=== PATIENT | male | born 1995 | race African-American/Black ===

== ENCOUNTER 2022-12-03 22:15 | Emergency (ER) | payer MEDICAID ==
[~2022-12-03] VITALS: Ht 177.8 cm; Wt 90.0 kg
[2022-12-03 23:04] LABS: BASOPHILS % 0.5 % (0.0-2.0); CHLORIDE 106 mEq/L (98-107); EOSINOPHILS % 2.1 % (0.0-5.0); HEMATOCRIT. 49.2 % (42.0-52.0); HEMOGLOBIN. 16.9 g/dL (14.0-18.0); LYMPHOCYTES % 35.6 % (20.0-50.0); MEAN CORPUSCULAR HEMOGLOBIN 31.5 pg (28.0-32.0); MEAN CORPUSCULAR VOLUME 91.5 fL (80.0-94.0); MEAN PLATELET VOLUME 8.1 fl (7.4-10.4); MONOCYTES % 8.6 % (2.0-8.0); NEUTROPHILS % 53.2 % (40.0-76.0); PLATELET 290 x1000/uL (130-400); RED BLOOD CELL COUNT 5.38 mill/uL (4.7-6.1); RED CELL DISTRIBUTION WIDTH 12.9 % (11.6-14.6)
[2022-12-03 23:10] LABS: ETHANOL BLOOD 172 mg/dL
[2022-12-04] MEDS ORDERED: SODIUM CHLORIDE 0.9% 1,000 ML IV ONE (01:15)
[2022-12-04] MEDS ORDERED: ONDANSETRON HCL 4MG/2ML INJ IV ONE (01:30)
[2022-12-04] MEDS ORDERED: NALOXONE HCL 0.4 MG/ML 1ML VIAL IV ONE (03:30)
[2022-12-04 04:20] VITALS: BP 112/83
[2022-12-04 05:00] LABS: *AMPHETAMINES SCREEN URINE NEGATIVE (NEGATIVE); *BARBITURATES SCREEN URINE NEGATIVE (NEGATIVE); *BENZODIAZEPINES SCREEN URINE NEGATIVE (NEGATIVE); *COCAINE SCREEN URINE NEGATIVE (NEGATIVE); CANNABINOID URINE SCREEN NEGATIVE (NEGATIVE); METHADONE URINE SCREEN NEGATIVE (NEGATIVE); OPIATES URINE SCREEN PRESUMTIVE POSITIVE (NEGATIVE); PHENCYCLIDINE URINE SCREEN NEGATIVE (NEGATIVE)
[2022-12-04] MEDS ORDERED: ONDA4TAB11 PO (10:05)
[2022-12-04] MEDS ORDERED: NALO4SPR BOTHNSTRLS (10:05)
== END 2022-12-04 06:01 | disposition home or self-care (01) ==
LOC: EDBD → ER 22:25 → CANBEDREQ 12-05 11:25
DX: T40.1X1A Poisoning by heroin, accidental (unintentional), initial encounter (principal); Z88.8 Allergy status to other drugs, medicaments and biological substances; Z88.0 Allergy status to penicillin; Y92.520 Airport as the place of occurrence of the external cause
CPT/HCPCS: 36415; 80048; 80305; 80307; 80320; 80329; 85025; 96361; 96374; 96375; 99285; J2310; J7030; Z7610; G0480

== ENCOUNTER 2022-12-04 07:41 | Emergency (ER) | payer MEDICAID ==
[~2022-12-04] VITALS: Ht 167.6 cm; Wt 82.0 kg
[2022-12-04 08:07] VITALS: BP 138/89
[2022-12-04] MEDS ORDERED: ONDANSETRON 4MG ODT PO ONE (10:00)
[2022-12-04] MEDS ORDERED: ONDA4TAB11 PO (10:05)
[2022-12-04] MEDS ORDERED: NALO4SPR BOTHNSTRLS (10:05)
== END 2022-12-04 10:46 | disposition home or self-care (01) ==
LOC: ER 07:41 → EDBD 07:41 → ER 10:46
DX: F11.10 Opioid abuse, uncomplicated (principal); R11.0 Nausea; J45.909 Unspecified asthma, uncomplicated; Z98.890 Other specified postprocedural states; Z88.8 Allergy status to other drugs, medicaments and biological substances; Z88.0 Allergy status to penicillin
CPT/HCPCS: 99281; Q0162